=== PATIENT | male | born 1990 | race Caucasian/White ===

== ENCOUNTER 2024-11-27 10:27 | Inpatient (IN) | payer OTHER ==
[~2024-11-27] VITALS: Ht 172.7 cm; Wt 91.6 kg
[2024-11-27 10:58] LABS: BASOPHILS % (AUTO) 0.3 % (0.0-2.0); EOSINOPHILS % (AUTO) 0.4 % (0.0-6.0); HEMATOCRIT 39 % (39-51); HEMOGLOBIN 12.7 g/dL (13.5-17.5); LYMPHOCYTES # (AUTO) 2.2 K/uL (0.8-4.8); LYMPHOCYTES % (AUTO) 23.1 % (20.0-44.0); MEAN CORPUSCULAR HEMOGLOBIN 28 PG (26.0-33.0); MEAN CORPUSCULAR HGB CONC 32 g/dl (31.0-36.0); MEAN CORPUSCULAR VOLUME 86 fL (80-96); MONOCYTES # (AUTO) 0.4 K/uL (0.1-1.30); MONOCYTES % (AUTO) 3.7 % (2.0-12.0); NEUTROPHILS # (AUTO) 7.1 K/uL (1.8-8.9); NEUTROPHILS % (AUTO) 72.5 % (43.0-81.0); PLATELET COUNT (AUTO) 247 K/uL (150-450); RED BLOOD CELL COUNT(AUTO) 4.57 MIL/uL (4.5-6.0); RED CELL DISTRIBUTION WIDTH 15.6 % (11.5-15.0); WHITE BLOOD COUNT (AUTO) 9.7 K/uL (4.3-11.0)
[2024-11-27 11:06] LABS: CALCIUM, SERUM 8.1 mg/dL (8.5-10.1); POTASSIUM 3.6 mmol/L (3.5-5.1)
[2024-11-27] MEDS ORDERED: MORPHINE SULFATE INJ 4 MG/ML DISP.SYRIN ONE (11:26)
[2024-11-27] MEDS: MORPHINE SULFATE INJ 2 MG/ML DISP.SYRIN IV ONE (11:35)
[2024-11-27] MEDS ORDERED: METH-647 PO (11:37)
[2024-11-27] MEDS ORDERED: MELA1TAB47 PO (11:37)
[2024-11-27] MEDS ORDERED: ACET-907 PO (11:37)
[2024-11-27] MEDS ORDERED: DULO60CA64 PO (11:37)
[2024-11-27] MEDS ORDERED: OXYC-133 PO (11:37)
[2024-11-27] MEDS ORDERED: CELE100C PO (11:37)
[2024-11-27] MEDS ORDERED: TIZA4TAB5 PO (11:37)
[2024-11-27] MEDS ORDERED: ACET-868 PO (11:37)
[2024-11-27] MEDS ORDERED: DICL100G34 TP (11:37)
[2024-11-27] MEDS ORDERED: TRAZ-182 PO (11:37)
[2024-11-27] MEDS ORDERED: MORPHINE SULFATE INJ 2 MG/ML DISP.SYRIN ONE (13:29)
[2024-11-27] MEDS: MORPHINE SULFATE INJ 2 MG/ML DISP.SYRIN IV PRN (13:37)
[2024-11-27] MEDS ORDERED: methylPREDNISolone SOD SUCC 125 MG/2ML VIAL ONE ×2 (14:00→21:03)
[2024-11-27] MEDS: methylPREDNISolone SOD SUCC 125 MG/2ML VIAL IV ONE (14:07)
[2024-11-27] MEDS ORDERED: GADOTERATE MEGLUMINE 10 MMOL/20 ML VIAL IV ONE (14:31)
[2024-11-27] MEDS ORDERED: MAGNESIUM HYDROXIDE 30 ML UDC PO PRN (15:00)
[2024-11-27] MEDS ORDERED: MAG HYDROX/AL HYDROX/SIMETH 30 ML UDC PO PRN (15:00)
[2024-11-27] MEDS ORDERED: ONDANSETRON HCL/PF 4 MG/2 ML VIAL IVP PRN (15:00)
[2024-11-27 15:24] LABS: THYROID STIMULATING HORMONE 4.35 uIU/mL (0.358-3.74)
[2024-11-27] MEDS: methylPREDNISolone SOD SUCC 125 MG/2ML VIAL IV SCH (21:00)
[2024-11-27] MEDS ORDERED: oxyCODONE/APAP (5/325 MG) 1 UDTAB TABLET ONE (23:44)
[2024-11-27] MEDS: oxyCODONE/APAP (5/325 MG) 1 UDTAB TABLET PO PRN (23:46)
[2024-11-28] MEDS ORDERED: ACETAMINOPHEN ES 500 MG TABLET ONE (03:21)
[2024-11-28] MEDS ORDERED: methylPREDNISolone SOD SUCC 125 MG/2ML VIAL ONE (05:00)
[2024-11-28] MEDS ORDERED: oxyCODONE/APAP (5/325 MG) 1 UDTAB TABLET ONE (06:10)
[2024-11-28 06:50] LABS: BASOPHILS # (AUTO) 0.1 K/uL (0.0-0.2); BASOPHILS % (AUTO) 0.6 % (0.0-2.0); HEMATOCRIT 38 % (39-51); HEMOGLOBIN 12.4 g/dL (13.5-17.5); LYMPHOCYTES % (AUTO) 11.6 % (20.0-44.0); MEAN CORPUSCULAR HEMOGLOBIN 28 PG (26.0-33.0); MEAN CORPUSCULAR HGB CONC 33 g/dl (31.0-36.0); MEAN CORPUSCULAR VOLUME 85 fL (80-96); MONOCYTES # (AUTO) 0.2 K/uL (0.1-1.30); MONOCYTES % (AUTO) 1.8 % (2.0-12.0); NEUTROPHILS # (AUTO) 7.4 K/uL (1.8-8.9); PLATELET COUNT (AUTO) 277 K/uL (150-450); RED BLOOD CELL COUNT(AUTO) 4.41 MIL/uL (4.5-6.0); RED CELL DISTRIBUTION WIDTH 15.8 % (11.5-15.0); WHITE BLOOD COUNT (AUTO) 8.6 K/uL (4.3-11.0)
[2024-11-28 07:00] LABS: CALCIUM, SERUM 8.3 mg/dL (8.5-10.1); MAGNESIUM 1.8 mg/dL (1.8-2.4); PHOSPHORUS 2.3 mg/dL (2.5-4.9); POTASSIUM 4.1 mmol/L (3.5-5.1)
[2024-11-28] MEDS: PANTOPRAZOLE 40 MG TABLET.DR PO SCH (07:30)
[2024-11-28 09:34] LABS: CSF GLUCOSE 93 mg/dL (40-70); CSF PROTEIN 67.57 mg/dL (15-45)
[2024-11-28 12:19] LABS: CSF COLOR BLOODY (COLORLESS); CSF VOLUME 0.5 mL
[2024-11-28 12:20] LABS: CSF APPEARANCE SL CLOUDY (CLEAR)
[2024-11-28 14:19] LABS: CSF WHITE BLOOD CELL COUNT 0 /cumm (0-5)
[2024-11-28] MEDS: ENOXAPARIN SODIUM 40 MG/0.4 ML DISP.SYRIN SQ SCH (14:53)
[2024-11-28] MEDS: K PHOS NEUTRAL 250 MG TABLET PO ONE (15:27)
[2024-11-28 16:00] VITALS: BP 137/97; TEMP 98.3; O2SAT 96
[2024-11-28] MEDS ORDERED: diphenhydrAMINE HCL 50 MG CAPSULE PO SCH (17:00)
[2024-11-28] MEDS ORDERED: IV NS 0.9% 1,000 ML IV PRN (17:00)
[2024-11-28] MEDS: diphenhydrAMINE HCL 50 MG CAPSULE PO SCH (17:28)
[2024-11-28] MEDS: IMMUNE GLOBUL IV SCH (18:05)
[2024-11-28] MEDS: IGA AVG IV SCH (18:05)
[2024-11-28] MEDS: GLY IV SCH (18:05)
[2024-11-28 20:00] VITALS: BP 123/72; TEMP 98; O2SAT 96
[2024-11-28] MEDS: ZOLPIDEM TARTRATE 10 MG TABLET PO ONE (21:09)
[2024-11-29] VITALS: BP 132/88; TEMP 98.1; O2SAT 96
[2024-11-29 04:00] VITALS: BP 131/76; TEMP 98; O2SAT 98
[2024-11-29 07:20] LABS: HEMATOCRIT 34 % (39-51); HEMOGLOBIN 11.2 g/dL (13.5-17.5); LYMPHOCYTES # (AUTO) 0.6 K/uL (0.8-4.8); LYMPHOCYTES % (AUTO) 3.9 % (20.0-44.0); MEAN CORPUSCULAR HEMOGLOBIN 28 PG (26.0-33.0); MEAN CORPUSCULAR HGB CONC 33 g/dl (31.0-36.0); MEAN CORPUSCULAR VOLUME 86 fL (80-96); MONOCYTES # (AUTO) 0.3 K/uL (0.1-1.30); MONOCYTES % (AUTO) 1.9 % (2.0-12.0); NEUTROPHILS # (AUTO) 14.2 K/uL (1.8-8.9); NEUTROPHILS % (AUTO) 94.2 % (43.0-81.0); PLATELET COUNT (AUTO) 267 K/uL (150-450); RED BLOOD CELL COUNT(AUTO) 3.99 MIL/uL (4.5-6.0); WHITE BLOOD COUNT (AUTO) 15.1 K/uL (4.3-11.0)
[2024-11-29 08:00] VITALS: BP 126/73; TEMP 98.3; O2SAT 99
[2024-11-29 08:15] LABS: BILIRUBIN,TOTAL 0.2 mg/dL (0.2-1.0); CALCIUM, SERUM 8.4 mg/dL (8.5-10.1); MAGNESIUM 2.1 mg/dL (1.8-2.4); PHOSPHORUS 2.7 mg/dL (2.5-4.9); POTASSIUM 3.8 mmol/L (3.5-5.1); TOTAL PROTEIN, SERUM 6.6 g/dL (6.4-8.2)
[2024-11-29 12:00] VITALS: BP 128/73; TEMP 98.3; O2SAT 98
[2024-11-29 16:00] VITALS: BP 122/84; TEMP 98; O2SAT 98
[2024-11-29 20:00] VITALS: BP 113/67; TEMP 98.6; O2SAT 98
[2024-11-29] MEDS: ZOLPIDEM TARTRATE 10 MG TABLET PO PRN (22:17)
[2024-11-30] VITALS: BP 118/71; TEMP 98.2; O2SAT 98
[2024-11-30 02:07] LABS: *HSV 1 DNA PCR Negative (Negative); *HSV 2 DNA PCR Negative (Negative)
[2024-11-30 04:00] VITALS: BP 118/71; TEMP 97.6; O2SAT 97
[2024-11-30] MEDS: ACETAMINOPHEN 325 MG TABLET PO PRN (05:25)
[2024-11-30 08:00] VITALS: BP 122/73; TEMP 98.2; O2SAT 100
[2024-11-30 08:51] LABS: BASOPHILS % (AUTO) 0.1 % (0.0-2.0); HEMATOCRIT 34 % (39-51); HEMOGLOBIN 10.8 g/dL (13.5-17.5); LYMPHOCYTES # (AUTO) 0.8 K/uL (0.8-4.8); LYMPHOCYTES % (AUTO) 5.9 % (20.0-44.0); MEAN CORPUSCULAR HEMOGLOBIN 28 PG (26.0-33.0); MEAN CORPUSCULAR HGB CONC 32 g/dl (31.0-36.0); MEAN CORPUSCULAR VOLUME 86 fL (80-96); MONOCYTES # (AUTO) 0.5 K/uL (0.1-1.30); MONOCYTES % (AUTO) 3.2 % (2.0-12.0); NEUTROPHILS # (AUTO) 12.7 K/uL (1.8-8.9); NEUTROPHILS % (AUTO) 90.8 % (43.0-81.0); PLATELET COUNT (AUTO) 268 K/uL (150-450); RED BLOOD CELL COUNT(AUTO) 3.94 MIL/uL (4.5-6.0); RED CELL DISTRIBUTION WIDTH 15.8 % (11.5-15.0)
[2024-11-30 09:23] LABS: ALBUMIN 2.7 g/dL (3.4-5.0); BILIRUBIN,TOTAL 0.2 mg/dL (0.2-1.0); CALCIUM, SERUM 8.4 mg/dL (8.5-10.1); CREATININE 0.9 mg/dL (0.6-1.3); POTASSIUM 3.4 mmol/L (3.5-5.1); TOTAL PROTEIN, SERUM 6.7 g/dL (6.4-8.2)
[2024-11-30] MEDS: POTASSIUM CHLORIDE 20 MEQ TAB.PRT.SR PO ONE (11:27)
[2024-11-30 12:00] VITALS: BP 126/83; TEMP 98.3; O2SAT 97
[2024-11-30 16:00] VITALS: BP 141/77; TEMP 97.6; O2SAT 99
[2024-11-30 20:00] VITALS: BP 131/83; TEMP 97.9; O2SAT 99
[2024-12-01] VITALS: BP 136/90; TEMP 98.1; O2SAT 97
[2024-12-01 04:00] VITALS: BP 130/78; TEMP 98.4; O2SAT 97
[2024-12-01 08:00] VITALS: BP 127/76; TEMP 97.8; O2SAT 97
[2024-12-01 08:05] LABS: HEMATOCRIT 34 % (39-51); HEMOGLOBIN 11.2 g/dL (13.5-17.5); LYMPHOCYTES # (AUTO) 0.9 K/uL (0.8-4.8); MEAN CORPUSCULAR HEMOGLOBIN 28 PG (26.0-33.0); MEAN CORPUSCULAR HGB CONC 33 g/dl (31.0-36.0); MEAN CORPUSCULAR VOLUME 86 fL (80-96); MONOCYTES # (AUTO) 0.7 K/uL (0.1-1.30); MONOCYTES % (AUTO) 5.1 % (2.0-12.0); NEUTROPHILS # (AUTO) 11.4 K/uL (1.8-8.9); NEUTROPHILS % (AUTO) 87.9 % (43.0-81.0); PLATELET COUNT (AUTO) 270 K/uL (150-450); RED BLOOD CELL COUNT(AUTO) 4.01 MIL/uL (4.5-6.0); RED CELL DISTRIBUTION WIDTH 15.8 % (11.5-15.0); WHITE BLOOD COUNT (AUTO) 12.9 K/uL (4.3-11.0)
[2024-12-01 08:30] LABS: ALBUMIN 2.6 g/dL (3.4-5.0); BILIRUBIN,TOTAL 0.3 mg/dL (0.2-1.0); CALCIUM, SERUM 8.4 mg/dL (8.5-10.1); CREATININE 0.8 mg/dL (0.6-1.3); POTASSIUM 3.4 mmol/L (3.5-5.1); TOTAL PROTEIN, SERUM 7.4 g/dL (6.4-8.2)
[2024-12-01] MEDS: POTASSIUM CHLORIDE 20 MEQ TAB.PRT.SR PO SCH (10:38)
[2024-12-01 11:08] LABS: *CRYPTOCOCCUS AG, CSF Negative (Negative)
[2024-12-01 12:00] VITALS: BP 133/88; TEMP 97.6; O2SAT 97
[2024-12-01 16:13] VITALS: BP 130/83; TEMP 97.9; O2SAT 99
[2024-12-01 20:00] VITALS: BP 122/77; TEMP 98.8; O2SAT 99
[2024-12-02] VITALS: BP 144/87; TEMP 98.4; O2SAT 99
[2024-12-02 04:00] VITALS: BP 141/80; TEMP 96.8; O2SAT 98
[2024-12-02 08:00] VITALS: BP 135/96; TEMP 98.4; O2SAT 98
[2024-12-02 09:27] LABS: ALBUMIN 2.5 g/dL (3.4-5.0); BILIRUBIN,TOTAL 0.4 mg/dL (0.2-1.0); CALCIUM, SERUM 8.4 mg/dL (8.5-10.1); CREATININE 0.9 mg/dL (0.6-1.3); POTASSIUM 3.6 mmol/L (3.5-5.1); TOTAL PROTEIN, SERUM 7.5 g/dL (6.4-8.2)
[2024-12-02 09:47] LABS: BASOPHILS % (AUTO) 0.1 % (0.0-2.0); HEMATOCRIT 35 % (39-51); HEMOGLOBIN 11.2 g/dL (13.5-17.5); LYMPHOCYTES # (AUTO) 0.8 K/uL (0.8-4.8); LYMPHOCYTES % (AUTO) 6.8 % (20.0-44.0); MEAN CORPUSCULAR HEMOGLOBIN 28 PG (26.0-33.0); MEAN CORPUSCULAR HGB CONC 33 g/dl (31.0-36.0); MEAN CORPUSCULAR VOLUME 86 fL (80-96); MONOCYTES # (AUTO) 0.4 K/uL (0.1-1.30); MONOCYTES % (AUTO) 3.4 % (2.0-12.0); NEUTROPHILS # (AUTO) 10.7 K/uL (1.8-8.9); NEUTROPHILS % (AUTO) 89.7 % (43.0-81.0); PLATELET COUNT (AUTO) 266 K/uL (150-450); RED BLOOD CELL COUNT(AUTO) 4.01 MIL/uL (4.5-6.0); RED CELL DISTRIBUTION WIDTH 15.7 % (11.5-15.0); WHITE BLOOD COUNT (AUTO) 11.9 K/uL (4.3-11.0)
[2024-12-02 10:07] LABS: VDRL, CSF Non Reactive (Non Rea:<1:1)
[2024-12-02 12:00] VITALS: BP 143/99; TEMP 98.6; O2SAT 100
[2024-12-02 16:00] VITALS: BP 157/98; TEMP 98; O2SAT 100
[2024-12-02 20:00] VITALS: BP 123/80; TEMP 98.2; O2SAT 98
[2024-12-03] VITALS: BP 137/91; TEMP 97.9; O2SAT 98
[2024-12-03 04:00] VITALS: BP 122/82; TEMP 97.7; O2SAT 100
[2024-12-03 08:00] VITALS: BP 121/78; TEMP 98.1; O2SAT 97
[2024-12-03 08:25] LABS: HEMATOCRIT 35 % (39-51); HEMOGLOBIN 11.5 g/dL (13.5-17.5); LYMPHOCYTES # (AUTO) 0.7 K/uL (0.8-4.8); LYMPHOCYTES % (AUTO) 5.7 % (20.0-44.0); MEAN CORPUSCULAR HEMOGLOBIN 28 PG (26.0-33.0); MEAN CORPUSCULAR HGB CONC 33 g/dl (31.0-36.0); MEAN CORPUSCULAR VOLUME 86 fL (80-96); MONOCYTES # (AUTO) 0.7 K/uL (0.1-1.30); MONOCYTES % (AUTO) 5.2 % (2.0-12.0); NEUTROPHILS # (AUTO) 11.8 K/uL (1.8-8.9); NEUTROPHILS % (AUTO) 89.1 % (43.0-81.0); PLATELET COUNT (AUTO) 249 K/uL (150-450); RED BLOOD CELL COUNT(AUTO) 4.07 MIL/uL (4.5-6.0); RED CELL DISTRIBUTION WIDTH 16.3 % (11.5-15.0); WHITE BLOOD COUNT (AUTO) 13.2 K/uL (4.3-11.0)
[2024-12-03 08:41] LABS: ALBUMIN 2.4 g/dL (3.4-5.0); BILIRUBIN,TOTAL 0.3 mg/dL (0.2-1.0); CALCIUM, SERUM 8.1 mg/dL (8.5-10.1); CREATININE 0.8 mg/dL (0.6-1.3); POTASSIUM 3.6 mmol/L (3.5-5.1); TOTAL PROTEIN, SERUM 7.7 g/dL (6.4-8.2)
[2024-12-03 10:21] LABS: ANISOCYTOSIS 1+; LYMPHOCYTES % (MANUAL) 13 % (16-48); MONOCYTES % (MANUAL) 1 % (0-11.0); MYELOCYTES % 1 % (0-0); NEUTROPHILS % (MANUAL) 85 (42-76); PLATELET ESTIMATE ADEQUATE
[2024-12-03 12:00] VITALS: BP 132/100; TEMP 98; O2SAT 98
[2024-12-03 20:42] VITALS: BP 138/95; TEMP 98.2; O2SAT 99
[2024-12-04 04:00] VITALS: BP 121/77; TEMP 97.7; O2SAT 97
[2024-12-04 07:58] LABS: HEMATOCRIT 36 % (39-51); HEMOGLOBIN 11.7 g/dL (13.5-17.5); LYMPHOCYTES # (AUTO) 0.9 K/uL (0.8-4.8); LYMPHOCYTES % (AUTO) 6.6 % (20.0-44.0); MEAN CORPUSCULAR HEMOGLOBIN 28 PG (26.0-33.0); MEAN CORPUSCULAR HGB CONC 33 g/dl (31.0-36.0); MEAN CORPUSCULAR VOLUME 86 fL (80-96); MONOCYTES # (AUTO) 0.7 K/uL (0.1-1.30); MONOCYTES % (AUTO) 5.5 % (2.0-12.0); NEUTROPHILS # (AUTO) 11.7 K/uL (1.8-8.9); NEUTROPHILS % (AUTO) 87.9 % (43.0-81.0); PLATELET COUNT (AUTO) 243 K/uL (150-450); RED BLOOD CELL COUNT(AUTO) 4.17 MIL/uL (4.5-6.0); RED CELL DISTRIBUTION WIDTH 15.7 % (11.5-15.0); WHITE BLOOD COUNT (AUTO) 13.4 K/uL (4.3-11.0)
[2024-12-04 08:00] VITALS: BP 138/91; TEMP 97.7; O2SAT 98
[2024-12-04 08:18] LABS: ALBUMIN 2.4 g/dL (3.4-5.0); BILIRUBIN,TOTAL 0.3 mg/dL (0.2-1.0); CALCIUM, SERUM 8.5 mg/dL (8.5-10.1); CREATININE 0.7 mg/dL (0.6-1.3); POTASSIUM 3.6 mmol/L (3.5-5.1); TOTAL PROTEIN, SERUM 7.4 g/dL (6.4-8.2)
[2024-12-04 10:17] LABS: LYMPHOCYTES % (MANUAL) 8 % (16-48); MONOCYTES % (MANUAL) 3 % (0-11.0); MYELOCYTES % 2 % (0-0); NEUTROPHILS % (MANUAL) 87 (42-76); PLATELET ESTIMATE ADEQUATE
[2024-12-04 10:19] LABS: ANISOCYTOSIS 1+
[2024-12-04 15:00] VITALS: BP 135/92; TEMP 98.7; O2SAT 99
[2024-12-04 16:00] VITALS: BP 135/92; TEMP 98.7; O2SAT 99
[2024-12-05 00:19] VITALS: BP 135/92; TEMP 98.7; O2SAT 99
[2024-12-05] MEDS ORDERED: ACET325T53 PO (07:41)
[2024-12-05] MEDS ORDERED: PANT40TA49 PO (07:41)
[2024-12-05] MEDS ORDERED: GABA300C PO (07:41)
[2024-12-05] MEDS ORDERED: OXYC1TAB8 PO (07:41)
[2024-12-05] MEDS ORDERED: MAGN400O6 PO (07:41)
[2024-12-05] MEDS ORDERED: METH4TAB17 PO (07:41)
[2024-12-05 07:52] LABS: ALBUMIN 2.6 g/dL (3.4-5.0); BILIRUBIN,TOTAL 0.6 mg/dL (0.2-1.0); CALCIUM, SERUM 8.3 mg/dL (8.5-10.1); CREATININE 0.8 mg/dL (0.6-1.3); POTASSIUM 3.5 mmol/L (3.5-5.1); TOTAL PROTEIN, SERUM 7.5 g/dL (6.4-8.2)
[2024-12-05 08:00] VITALS: BP 142/100; TEMP 98; O2SAT 100
[2024-12-05 08:19] LABS: BASOPHILS % (AUTO) 0.1 % (0.0-2.0); HEMATOCRIT 37 % (39-51); LYMPHOCYTES # (AUTO) 0.7 K/uL (0.8-4.8); LYMPHOCYTES % (AUTO) 4.7 % (20.0-44.0); MEAN CORPUSCULAR HEMOGLOBIN 28 PG (26.0-33.0); MEAN CORPUSCULAR HGB CONC 33 g/dl (31.0-36.0); MEAN CORPUSCULAR VOLUME 86 fL (80-96); MONOCYTES # (AUTO) 0.9 K/uL (0.1-1.30); MONOCYTES % (AUTO) 5.5 % (2.0-12.0); NEUTROPHILS % (AUTO) 89.7 % (43.0-81.0); PLATELET COUNT (AUTO) 250 K/uL (150-450); RED BLOOD CELL COUNT(AUTO) 4.28 MIL/uL (4.5-6.0); WHITE BLOOD COUNT (AUTO) 15.7 K/uL (4.3-11.0)
[2024-12-05 14:08] LABS: BAND % (MANUAL) 1 % (0.0-5.0); LYMPHOCYTES % (MANUAL) 9 % (16-48); MONOCYTES % (MANUAL) 3 % (0-11.0); NEUTROPHILS % (MANUAL) 87 (42-76)
[2024-12-05 14:12] LABS: ANISOCYTOSIS 1+; PLATELET ESTIMATE ADEQUATE
== END 2024-12-05 11:45 | disposition home health service (06) | DRG 49 ==
LOC: ER 10:33 → MED 12:24 → TRANSITION 11-28 00:42 → TELE1 11-28 10:42 → TELE-TD 11-28 17:47 → TELE1 12-03 06:57 → MEDSG1 12-03 14:15
PROVIDERS: ATTEND Nurse Practitioner Acute Care
PROC: 009U3ZX Drainage of Spinal Canal, Percutaneous Approach, Diagnostic (ICD-10-PCS; principal; 2024-11-28)
DX: G61.0 Guillain-Barre syndrome (principal); M51.06 Intervertebral disc disorders with myelopathy, lumbar region; D72.829 Elevated white blood cell count, unspecified; E66.9 Obesity, unspecified; E78.5 Hyperlipidemia, unspecified; Z98.890 Other specified postprocedural states; G89.29 Other chronic pain; Z68.30 Body mass index [BMI] 30.0-30.9, adult; Z88.1 Allergy status to other antibiotic agents; Z79.899 Other long term (current) drug therapy; M51.16 Intervertebral disc disorders with radiculopathy, lumbar region; M48.061 Spinal stenosis, lumbar region without neurogenic claudication; F10.11 Alcohol abuse, in remission; S34.4XXA Injury of lumbosacral plexus, initial encounter; X58.XXXA Exposure to other specified factors, initial encounter; Y92.9 Unspecified place or not applicable
CPT/HCPCS: 36415; 70450-TC; 72157-TC; 72158-TC; 80048-TC; 80053-TC; 80061-TC; 83735-TC; 84100-TC; 84443-TC; 85025-TC; 86592; 87102-TC; 87899; 89051-TC; 97110-TC; 97112-TC; 97116-TC; 97530-TC; A4216; A4223; A9575; G0378; J1572; J1650; J2270; J2919; J7050; Q0163